=== PATIENT | female | born 1950 | race Caucasian/White ===

== ENCOUNTER 2025-04-24 10:19 | Outpatient (CLI) | payer MEDICARE | END 2025-04-24 10:20 | disposition home or self-care (01) | LOC: CSHMAMMO 10:19 | PROVIDERS: ATTEND Internal Medicine Hematology & Oncology | DX: C50.812 Malignant neoplasm of overlapping sites of left female breast (principal); Z85.3 Personal history of malignant neoplasm of breast | CPT/HCPCS: 77065; G0279 ==